=== PATIENT | female | born 1960 ===

== ENCOUNTER 2024-12-03 08:00 | Inpatient (IN) | payer OTHER ==
[2024-12-10] MEDS ORDERED: ROCURONIUM BROMIDE 50 MG/5 ML SYRINGE ONE (07:53)
[2024-12-10] MEDS ORDERED: PROPOFOL 20 ML ONE (07:53)
[2024-12-10] MEDS ORDERED: MIDAZOLAM HCL 2 MG/2 ML SINGLE DOSE VIAL ONE (07:54)
[2024-12-10] MEDS ORDERED: ONDANSETRON 4 MG/2 ML VIAL IVPUSH PRN (08:17)
[2024-12-10] MEDS: ceFAZolin SODIUM 1 GM VIAL IVPB ONE ×2 (08:34)
[2024-12-10] MEDS ORDERED: ceFAZolin SODIUM 1 GM VIAL ONE (08:39)
[2024-12-10] MEDS ORDERED: LIDOCAINE HCL/PF 2% SDV 5ML VIAL ONE (08:39)
[2024-12-10] MEDS ORDERED: DEXAMETHASONE SOD PHOSPHATE 4 MG/1 ML VIAL ONE (08:39)
[2024-12-10] MEDS ORDERED: ACETAMINOPHEN INJECTION 100 ML ONE (08:40)
[2024-12-10] MEDS ORDERED: DEXMEDETOMIDINE HCL 200 MCG/2 ML IVPB ONE (09:24)
[2024-12-10] MEDS ORDERED: BUPIVACAINE HCL/PF 0.25% (2.5MG/ML) 10 ML VIAL ONE (10:04)
[2024-12-10] MEDS: CEFAZOLIN 2 GM in DEXTROSE 5%-WATER - 100 ML IVPB ONE (10:07)
[2024-12-10] MEDS ORDERED: ACETAMINOPHEN 325 MG TABLET (FP) PO PRN (10:24)
[2024-12-10] MEDS ORDERED: IBUPROFEN 600 MG TABLET (FP) PO PRN (10:24)
[2024-12-10] MEDS ORDERED: ACETAMINOPHEN 1000 MG/100 ML BAG IVPB PRN (10:26)
[2024-12-10] MEDS: LACTATED RINGERS SOLUTION 1,000 ML IV SCH (11:30)
[2024-12-10 12:23] VITALS: RESP 18
[2024-12-10] MEDS: ANASTROZOLE 1 MG TABLET PO SCH (13:30)
[2024-12-10] MEDS: IBUPROFEN 800 MG/8 ML IJ IVPB PRN (13:36)
[2024-12-10] MEDS: CEFAZOLIN SODIUM 2 GM in DEXTROSE 5%-WATER 100 ML IVPB SCH (17:19)
[2024-12-10] MEDS ORDERED: CEFAZOLIN 2 GM/D5W 2 GM/50 ML ML IVPB SCH (18:00)
[2024-12-10] MEDS: SIMETHICONE 80 MG TAB.CHEW (FP) PO PRN (19:28)
[2024-12-10] MEDS: ATORVASTATIN CA 10 MG TABLET (FP) PO SCH (21:33)
[2024-12-10] MEDS: AMITRIPTYLINE HCL 25 MG TABLET PO SCH (21:33)
[2024-12-10] MEDS ORDERED: oxyCODONE HCL 5 MG TABLET PO PRN ×2 (22:24)
[2024-12-11] MEDS: SENNOSIDES/DOCUSATE COMBO (SENNA PLUS) TABLET (UD) PO PRN (01:28)
[2024-12-11 05:57] VITALS: TEMP 98.2
[2024-12-11 07:03] LABS: ABSOLUTE IMMATURE GRANULOCYTES 0.03 x10^3/uL (0.0-0.031); BASOPHILS # 0.01 x10^3/uL (0.01-0.08); EOSINOPHIL % 0.3 % (0.7-5.8); EOSINOPHILS # 0.02 x10^3/uL (0.04-0.36); HEMOGLOBIN 9.7 g/dL (11.2-15.7); MCHC 33.4 g/dl (32.2-35.5); MEAN CELL VOLUME 91.2 fl (79.4-94.8); MEAN PLT VOLUME 9.6 fl (9.4-12.3); MONOCYTE # 0.63 x10^3/uL (0.24-0.86); MONOCYTE % 8.2 % (4.7-12.5); PLATELET COUNT 214 x10^3/uL (182-369); RDW 12.8 % (12.4-16.4)
[2024-12-11 09:21] VITALS: BP 115/60; PULSE 93
[2024-12-11] MEDS ORDERED: BISACODYL 10 MG SUPP.RECT RC PRN (10:24)
== END 2024-12-11 11:05 | disposition home or self-care (01) | DRG 743 ==
LOC: J2C 12-10 05:41 → EDSTATUS 12-10 08:00 → J3W 12-10 12:11
PROVIDERS: ADMIT Obstetrics & Gynecology; ATTEND Obstetrics & Gynecology
PROC: 0UT97ZZ Resection of Uterus, Via Natural or Artificial Opening (ICD-10-PCS; principal; 2024-12-10 08:00)
DX: N81.2 Incomplete uterovaginal prolapse (principal); I10 Essential (primary) hypertension
CPT/HCPCS: 36415; 85025; 86850; 86900; 86901; 88305-TC; 88341-TC; 88342-TC; 94010; 94760; J0131